=== PATIENT | male | born 1965 | race Caucasian/White ===

== ENCOUNTER 2022-11-01 20:31 | Emergency (ER) | payer MEDICAID, SELFPAY ==
[2022-11-01 20:23] VITALS: BP 176/96; PULSE 107; RESP 21; TEMP 37.3; O2SAT 92; BMI 25.8
[2022-11-01 20:28] VITALS: PULSE 62
--- NOTE | 2022-11-01 20:33 | ED_ITS ---
HPI - Extremity Problem General: Chief complaint: Extremity Problem,Nontraumatic Stated complaint: POSSIBLE DVT Time Seen by Provider: 11/01/22 20:33 History of Present Illness: Mr. Lui is a 57-year-old gentleman with complex past medical history including history of venous thromboembolic disease requiring intervention currently on anticoagulation with Eliquis presenting to the emergency department due to leg pain with discoloration. Reports increased pain approximately 1 week ago atraumatic in nature and now numbness with worse pain primarily in the calf region and down the dorsum of his foot and heel starting 2 days ago. Discoloration he has difficulty saying how long has been going on. Intensity symptoms is moderate to severe. Patient has had transient improvement with Dilaudid. No other specific changes in health, exacerbating, or alleviating factors identified. He was seen and in [facility] at [facility] and transferred here after discussion with vascular surgery Dr. Liu has believed that they do not have ultrasound capability and other facilities that they tried were on divert and did not accept the patient. Last dose of Eliquis a.m. 10/31 Onset (ago): day(s) Pain Consistency: constant Location: left and lower extremity Severity scale (1-10): 10 Quality: burning and aching Radiation: distal Relieving factors: nothing Exacerbating factors: weight bearing, walking, exertion and palpation Review of Systems General: Reports: 10 or more systems reviewed and unremarkable except in HPI and below PFSH ED PFSH: Medical History Arteriosclerotic coronary artery disease CAD S/P percutaneous coronary angioplasty Chronic renal insufficiency COPD (chronic obstructive pulmonary disease) CVA (cerebral vascular accident) Diabetes Difficult airway Hodgkin lymphoma, unspecified, unspecified site Hyperlipidemia Hypertension Psychiatric disorder PUD (peptic ulcer disease) Seizure disorder Substance abuse Thromboembolism Surgical History History of repair of rotator cuff S/P IVC filter Physical Exam Const: COMMON NORMALS: alert GENERAL APPEARANCE: cooperative and well dev eloped HENMT: COMMON NORMALS: normocephalic and atraumatic HEAD & SCALP: normocephalic and atraumatic THROAT: posterior oropharynx normal Eye: COMMON NORMALS: conjunctivae normal CONJUNCTIVA: Yes conjunctivae no rmal SCLERA: sclerae normal Neck/C-Spine: COMMON NORMALS: supple GENERAL: Yes trachea midline Resp: COMMON NORMALS: normal respiratory effort EFFORT & INSPECTION: Yes able to speak in complete sentences Cardio: COMMON NORMALS: regular rate and regular rhythm RATE: regular rate RHYTHM: regular rhythm GI: COMMON NORMALS: Soft to palpation PALPATION: Yes Soft to palpation and No Tenderness to palpation present (GI) Extremity: NARRATIVE EXTREMITY EXAM: Left lower extremity significant edema and discoloration, significant tenderness palpation generally. Dopplerable signals for PT and DP however given degree of edema unable to palpate. GENERAL: Yes edema Neuro: COMMON NORMALS: moves all extremities SENSORIUM/ORIENTATION: Yes alert and No Orientation impaired Psych: COMMON NORMALS: mental status grossly normal and Normal thought process present THOUGHT PROCESS: Normal thought process present Course Vital Signs: Vital signs: Vital Signs Temperature 99.2 F 11/01/22 20:23 Pulse Rate 88 11/02/22 01:58 Respiratory Rate 17 11/02/22 01:58 Blood Pressure 167/97 11/02/22 01:58 Pulse Oximetry 94 11/02/22 01:58 Oxygen Delivery Me thod 11/02/22 00:58 Oxygen Flow Rate 2.5 11/02/22 00:58 Fraction of Inspir ed Oxygen 2 11/01/22 20:23 MDM - Extremity (Nontraumatic) Medical Decision Making 57-year-old gentleman presenting to the emergency department due to left lower extremity swelling and outside facility which does not have capability of performing ultrasound. Exam with discolored, cool, swollen extremity that patient reports is atraumatic. Patient requiring IV analgesia and is somewhat i ll-appearing. Labs with no leukocytosis, normal hemoglobin, platelet count mildly decreased. Metabolic panel with hyponatremia and hypochloremia, anion gap is elevated with preserved renal function. Transaminitis is mild of uncertain etiology. Arterial left lower extremity ultrasound demonstrates some degree of stenosis between the popliteal and posterior tibial artery however flow still demon strated. DVT study demonstrates severe clot burden to prematurely entire deep venous system of the left lower extremity. 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 We do not have capability to perform the required peripheral intervention at our facility and therefore patient requires transfer. Patient started on heparin drip. Patient accepted by Dr. Lawson of vascular surgery at [facility]. The results of ED evaluation were discussed with the patient including plan for transfer due to requirement for level of care not available if discharged to prevent significant worsening/deterioration. Patient agreeable with plan. Medical Records I reviewed the patient's medical records. Lab Data I reviewed the patient's lab results. 11/01/22 22:07 11/01/22 22:07 Radiology Impressions Duplex Scan Lower Extremity Artery 11/01/22 20:38 IMPRESSION: 1. Monophasic flow in the right dorsalis pedis artery and right posterior tibial artery. 2. 2-1 velocity drop between the left popliteal artery and the left posterior tibial artery consistent with 50% stenosis. Venous Duplex 11/01/22 20:38 IMPRESSION: Occlusive DVT throughout the entire left lower extremity from the common femoral vein through the trifurcation veins. ADDENDUM: 11/01/222230 THIS REPORT CONTAINS FINDINGS THAT MAY BE CRITICAL TO PATIENT CARE. The findings were verbally communicated via telephone conference with Woo Garcia at 10:28 PM LABEL FUSER TENDER on 11/01/2022. The findings were acknowledged and understood. Laboratory Results WBC 4.5 10^3/uL (4.0-10.0) 11/01/22 22:07 RBC 4.12 10^6/uL (4.1-5.3) 11/01/22 22:07 Hgb 14.8 g/dL (11.7-16.6) 11/01/22 22:07 Hct 42.5 % (42.0-52.0) 11/01/22 22:07 MCV 103.2 fl (80-94) H 11/01/22 22:07 MCH 35.9 pg (28.0-34.0) H 11/01/22 22:07 MCHC 34.8 g/dL (30.0-36.0) 11/01/22 22:07 RDW 13.8 % (12.1-15.1) 11/01/22 22:07 Plt Count 116 10^3/cmm (130-400) L 11/01/22 22:07 MPV 9.2 fL (7.4-10.4) 11/01/22 22:07 Neut % (Auto) 54.3 % 11/01/22 22:07 Lymph % (Auto) 26.5 % 11/01/22 22:07 [place] % (Auto) 18.3 % 11/01/22 22:07 Eos % (Auto) 0.0 % 11/01/22 22:07 Baso % (Auto) 0.7 % 11/01/22 22:07 Neut # (Auto) 2.46 10^3/uL (1.8-7.7) 11/01/22 22:07 Lymph # (Auto) 1.2 10^3/uL (0.8-4.8) 11/01/22 22:07 [place] # (Auto) 0.8 10^3/uL (0.2-0.9) 11/01/22 22:07 Eos # (Auto) 0.0 10^3/uL (0.0-0.8) 11/01/22 22:07 Baso # (Auto) 0.0 10^3/uL (0.0-0.1) 11/01/22 22:07 Nucleated RBC % (auto) 0 % 11/01/22 22:07 Nucleated RBCs # 0.0 /100WBC 11/01/22 22:07 PT 12.80 SECONDS (12.1-14.9) 11/01/22 22:07 INR 0.93 (0.8-1.2) 11/01/22 22:07 APTT 29.1 SECONDS (23.9-36.7) 11/01/22 22:07 Sodium 127 mmol/L (136-145) L 11/01/22 22:07 Potassium 3.7 mmol/L (3.5-5.1) 11/01/22 22:07 Chloride 86 mmol/L (98-107) L 11/01/22 22:07 Carbon Dioxide 22 mmol/L (22-29) 11/01/22 22:07 Anion Gap 22.7 (5-19) H 11/01/22 22:07 BUN 3 mg/dL (6-20) L 11/01/22 22:07 Creatinine 0.5 mg/dL (0.7-1.2) L 11/01/22 22:07 GFR Calculation 170.2 mL/min (90-130) H 11/01/22 22:07 Glucose 80 mg/dL (65-115) 11/01/22 22:07 Calculated Osmolality 260 mOsm/kg (285-295) L 11/01/22 22:07 Lactic Acid 2.2 mmol/L (0.5-2.2) 11/01/22 22:07 Lactic Acid (Sepsis) 1.6 mmol/L (0.5-2.2) 11/02/22 01:00 Calcium 9.4 mg/dL (8.5-10.5) 11/01/22 22:07 Total Bilirubin 0.7 mg/dL (0.15-1.2) 11/01/22 22:07 AST 102 U/L (0-40) H 11/01/22 22:07 ALT 135 U/L (0-41) H 11/01/22 22:07 Alkaline Phosphatase 104 U/L (40-130) 11/01/22 22:07 Creatine Kinase 102 U/L (39-308) 11/01/22 22:07 NT-Pro-B Natriuret Pep 64 pg/mL (0-125) 11/01/22 22:07 Total Protein 6.9 g/dL (6.6-8.7) 11/01/22 22:07 Albumin 4.3 g/dL (3.5-5.2) 11/01/22 22:07 Globulin 2.6 g/dL (1.3-4.6) 11/01/22 22:07 Coronavirus 229E (PCR) Not detected (NOT DETECT) 11/01/22 23:48 SARS-CoV-2 (PCR) Detected (NOT DETECT) A 11/01/22 23:48 Critical Care Time Critical Care Time: Critical Care Time: Yes Total Critical Care Time: 40 Attestation: Due to a high probability of clinically significant, possibly life threatening deterioration, the patient required my highest level of attention and preparedness to intervene emergently and I personally spent this critical care time directly and personally managing the patient. This critical care time included obtaining a history; examining the patient; pulse oximetry; ordering and review of laboratory and imaging studies; arranging urgent treatment with development of a management plan; evaluation of patient's response to treatment; frequent reassessment; and, discussions with other providers as applicable. It was exclusive of separately billable procedures. Primary system involved is peripheral vascular Discharge Plan Discharge Patient Disposition: Xfer Short-Term Hosp Clinical Impression: Deep vein thrombosis of lower extremity, Phlegmasia cerulea dolens of left lower extremity Condition: Stable Coding Level of Care Code ED Sewer Pipe Sorter for Mariel Hernadez
--- NOTE | 2022-11-01 20:38 | USR_ITS ---
PROCEDURE INFORMATION: Exam: US Duplex Left Lower Extremity Veins, Limited Exam date and time: 11/01/2022 9:04 PM Age: 57 years old Clinical indication: Pain; Leg, lower; Left; Additional info: Swelling, pain, loss of sensation TECHNIQUE: Imaging protocol: Real-time Duplex ultrasound of the Left Lower Extremity with 2-D jorgensen scale, color Doppler flow and spectral waveform analysis with image documentation. Limited exam focused on the left lower extremity veins. COMPARISON: No relevant prior studies available. FINDINGS: Left deep veins: Occlusive DVT throughout the entire left lower extremity from the common femoral vein through the trifurcation veins. Left superficial veins: Unremarkable. Saphenofemoral junction is patent without thrombus. Soft tissues: Unremarkable. US/CV venous duplex [facility] [id number] IMPRESSION: Occlusive DVT throughout the entire left lower extremity from the common femoral vein through the trifurcation veins.
--- NOTE | 2022-11-01 20:38 | USR_ITS ---
PROCEDURE INFORMATION: Exam: US Duplex Lower Extremity Arteries Exam date and time: 11/01/2022 9:19 PM Age: 57 years old Clinical indication: Pain; Leg, lower; Left; Additional info: Lle swelling, pain, loss of sensation TECHNIQUE: Imaging protocol: Real-time ultrasound scan of the arteries of the bilateral lower extremities with 2-D jorgensen scale, color Doppler flow and spectral waveform analysis. Images documented and saved. COMPARISON: [place] [id number] 11/01/2022 9:04 PM FINDINGS: Right common femoral artery: No occlusion or significant stenosis. Normal waveform. Right superficial femoral artery: No occlusion or significant stenosis. Normal waveform. Right popliteal artery: No occlusion or significant stenosis. Normal waveform. Right calf/foot arteries: Monophasic flow in the right dorsalis pedis artery and right posterior tibial artery. Left common femoral artery: No occlusion or significant stenosis. Normal waveform. Left superficial femoral artery: No occlusion or significant stenosis. Normal waveform. Left popliteal artery: No occlusion or significant stenosis. Normal waveform. Left calf/foot arteries: 2-1 velocity drop between the left popliteal artery and the left posterior tibial artery consistent with 50% stenosis. US/CV arterial duplex [facility] [id number] IMPRESSION: 1. Monophasic flow in the right dorsalis pedis artery and right posterior tibial artery. 2. 2-1 velocity drop between the left popliteal artery and the left posterior tibial artery consistent with 50% stenosis.
[2022-11-01 21:59] VITALS: RESP 17
[2022-11-01] MEDS: HYDROmorphone 1 mg/mL INJ 1 mL IVP ×2 (21:59→23:09)
[2022-11-01 22:15] LABS: Basophils % 0.7 %; Hematocrit 42.5 % (42.0-52.0); Hemoglobin 14.8 g/dL (11.7-16.6); Lymphocytes # 1.2 10^3/uL (0.8-4.8); Lymphocytes % 26.5 %; Mean Corpuscular HGB Conc 34.8 g/dL (30.0-36.0); Mean Corpuscular Hemoglobin 35.9 pg (28.0-34.0); Mean Corpuscular Volume 103.2 fl (80-94); Mean Platelet Volume 9.2 fL (7.4-10.4); Monocytes # 0.8 10^3/uL (0.2-0.9); Monocytes % 18.3 %; Neutrophils # 2.46 10^3/uL (1.8-7.7); Neutrophils % 54.3 %; Nucleated Red Blood Cells % 0 %; Platelet Count 116 10^3/cmm (130-400); Red Blood Count 4.12 10^6/uL (4.1-5.3); Red Cell Distribution Width 13.8 % (12.1-15.1); White Blood Count 4.5 10^3/uL (4.0-10.0)
[2022-11-01 22:39] LABS: Lactic Sepsis W/Reflex 2.2 mmol/L (0.5-2.2)
[2022-11-01 22:49] LABS: Alanine Aminotransferase 135 U/L (0-41); Albumin Level 4.3 g/dL (3.5-5.2); Alkaline Phosphatase 104 U/L (40-130); Anion Gap 22.7 (5-19); Aspartate Amino Transferase 102 U/L (0-40); Blood Urea Nitrogen 3 mg/dL (6-20); Calcium 9.4 mg/dL (8.5-10.5); Carbon Dioxide 22 mmol/L (22-29); Chloride 86 mmol/L (98-107); Creatine Phosphokinase 102 U/L (39-308); Globulin 2.6 g/dL (1.3-4.6); Glomerular Filtration Rate 170.2 mL/min (90-130); Glucose 80 mg/dL (65-115); NT Pro B Type Natriuretic Pept 64 pg/mL (0-125); Osmolality Calculated 260 mOsm/kg (285-295); Potassium 3.7 mmol/L (3.5-5.1); Sodium 127 mmol/L (136-145); Total Bilirubin 0.7 mg/dL (0.15-1.2); Total Protein 6.9 g/dL (6.6-8.7)
[2022-11-01 22:56] LABS: INR 0.93 (0.8-1.2); Partial Thromboplastin Time 29.1 SECONDS (23.9-36.7)
[2022-11-01 23:09] VITALS: RESP 15
[2022-11-01] MEDS: heparin 5,000 unit/mL INJ 1 mL IV (23:36)
[2022-11-01] MEDS: heparin drip 25,000 UNIT/500 ML PREMIX 21 UNIT IV (23:39)
[2022-11-02] VITALS (16 sets, daily range): BP systolic 127–197; BP diastolic 78–116; PULSE 70–104; RESP 17–28; O2SAT 88–94
[2022-11-02 00:01] LABS: Reflex Lactate Order REFLEX LACTIC ORDERD
[2022-11-02] MEDS: amlodipine 10 mg Tablet PO (01:17)
[2022-11-02 01:25] LABS: Lactic Acid level (Lactate) 1.6 mmol/L (0.5-2.2)
[2022-11-02] MEDS: HYDROmorphone 1 mg/mL INJ 1 mL IVP ×2 (01:28→01:51)
[2022-11-02] MEDS: labetalol 5 mg/mL SDV 20mL 20 MG IVP (01:34)
[2022-11-02 02:44] LABS: Adenovirus Not Detected (NOT DETECT); Chlamydia Pneumoniae Not Detected (NOT DETECT); Coronavirus 229E,HKU1,NL63,OC4 Not Detected (NOT DETECT); Human Metapneumovirus Not Detected (NOT DETECT); Human Rhinovirus/Enterovirus Not Detected (NOT DETECT); Influenza A Not Detected (NOT DETECT); Influenza A H1 Not Detected (NOT DETECT); Influenza A H1-2009 Not Detected (NOT DETECT); Influenza A H3 Not Detected (NOT DETECT); Influenza B Not Detected (NOT DETECT); Mycoplasma Pneumoniae Not Detected (NOT DETECT); Parainfluenza Virus Type 1 Not Detected (NOT DETECT); Parainfluenza Virus Type 2 Not Detected (NOT DETECT); Parainfluenza Virus Type 3 Not Detected (NOT DETECT); Parainfluenza Virus Type 4 Not Detected (NOT DETECT); Respiratory Syncytial Virus A Not Detected (NOT DETECT); Respiratory Syncytial Virus B Not Detected (NOT DETECT); SARS-COV-2 Detected (NOT DETECT)
--- NOTE | 2022-11-02 08:27 | PC.NURSE ---
positive covid results faxed to [facility] pt was transferred
== END 2022-11-02 02:00 | disposition short-term general hospital (02) ==
PROVIDERS: Emergency Provider Emergency Medicine
DX: I82.432 Acute embolism and thrombosis of left popliteal vein (principal); I82.442 Acute embolism and thrombosis of left tibial vein; I10 Essential (primary) hypertension; E11.9 Type 2 diabetes mellitus without complications; I25.10 Atherosclerotic heart disease of native coronary artery without angina pectoris
CPT/HCPCS: 36415; 80053; 82550; 83605; 83880; 85025; 85610; 85730; 87635; 93925; 93971; 96365; 96366; 96375; 99285; J1170; J1644; J3490